=== PATIENT | female | born 1990 | race Caucasian/White ===

== ENCOUNTER → 2016-12-29 | Outpatient (CLI) | payer OTHER ==
[~2016-12-29] MED LIST: FLEXERIL10 M1 PO; MEDROL PO; NO MEDICATIONS; PEPCID PO; VOLTAREN75 MG PO
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
--- NOTE | ~2016-12-29 | NM8 ---
[facility] A Service of [facility] RADIOLOGY TEXT RESULTS PATIENT: LARRY NICHOLSON LOCATION: [facility] : [birth year] UNIT #: [id number] AGE: [address]: Dann Gates MD SEX: F ORDER DR: [id number] [id number] [place], [place] [address] [id number] O MR#: [id number] Acc #: [id number] NAME: LARRY NICHOLSON : 1990 SEX: F STUDY DATE/TIME: 12/29/2016 14:05 UNIT: [facility] ROOM: STUDY DESCRIPTION: PR Bone or Joint Whole Body Attending Physician: Dann Gates M.D. Referring Physician: Dann Gates M.D. Ordering Physician: Dann Gates M.D. Primary Care Physician: No Primary Care Physician MEDICAL IMAGING REPORT This report is preliminary unless electronic signature is present EXAM Whole-body bone scan 12/29/2016 HISTORY Right knee pain for several months. Degenerative disc disease lumbar spine. Complains of low back pain, bilateral hip pain since 2011. COMPARISON STUDIES MRI of the lumbar spine 12/29/2016 and MRI of the knee 10/08/2016 FINDINGS Whole-body and selected spot images were performed of the axial and appendicular skeleton following the intravenous administration of 22.9 mCi technetium 99m MDP. Examination demonstrates normal symmetric uptake of the radiopharmaceutical throughout the axial and appendicular skeleton. There is some very minimal increased uptake within the left mandible, could be related to prior dental surgery or dental disease. Bilateral renal activity noted with retained activity noted within the right renal collecting system and right ureter. This is nonspecific and can be associated with reflux or low grade obstruction. No evidence of a high-grade obstruction. IMPRESSION 1. No abnormal uptake identified within the lumbar spine or knees to suggest significant degenerative disc disease or arthropathy. 2. Increased activity within the right renal pelvis and right ureter nonspecific but could be associated with reflux disease or low grade obstruction. Dictated by... Beverly Spaulding M.D. THIS IS AN ELECTRONICALLY VERIFIED REPORT [facility] A Service of [facility] RADIOLOGY TEXT RESULTS PATIENT: LARRY NICHOLSON LOCATION: [facility] : [birth year] UNIT #: [id number] AGE: [address]: Dann Gates MD SEX: F ORDER DR: Beverly Spaulding M.D. at 12/30/2016 7:22 AM Rima TD: 12/29/2016 15:45 JOB #: [id number] MEDICAL IMAGING REPORT Page 1 of 1 COPY
== END | disposition home or self-care (01) ==
LOC: CNUC 09:45
DX: M51.27 Other intervertebral disc displacement, lumbosacral region (principal); M54.5 Low back pain; M25.561 Pain in right knee; M47.816 Spondylosis without myelopathy or radiculopathy, lumbar region; M51.25 Other intervertebral disc displacement, thoracolumbar region; M51.87 Other intervertebral disc disorders, lumbosacral region
CPT/HCPCS: 72148; 78306; A9503